=== PATIENT | female | born 2000 | race Caucasian/White ===

== ENCOUNTER 2021-05-01 17:26 | Emergency (ER) | payer SELFPAY ==
[~2021-05-01] VITALS: Ht 149.9 cm; Wt 54.4 kg
[2021-05-01 17:30] VITALS: BP 119/76
--- NOTE | 2021-05-01 18:15 | NUR ---
CALLED TO ROOM IN,NO ANSWER
== END 2021-05-01 18:53 | disposition left against medical advice (07) ==
LOC: ER 18:52
DX: S90.812A Abrasion, left foot, initial encounter (principal); S90.811A Abrasion, right foot, initial encounter; F17.200 Nicotine dependence, unspecified, uncomplicated; V09.9XXA Pedestrian injured in unspecified transport accident, initial encounter; Y93.89 Activity, other specified; Y92.89 Other specified places as the place of occurrence of the external cause; Y99.8 Other external cause status